=== PATIENT | male | born 1970 | race Caucasian/White ===

== ENCOUNTER 2024-10-26 18:59 | Observation (INO) | payer OTHER ==
--- NOTE | 2024-10-26 19:12 | ED ---
General Adult HPI - General Chief complaint: Seizure Stated complaint: Seizure,AMS Time Seen by Provider: 10/26/24 19:00 Source: patient, EMS, RN notes reviewed, old records reviewed Mode of arrival: EMS Limitations: altered mental status - History of Present Illness Initial comments: This is a 54-year-old male who presents to the emergency department after having an episode where he passed out possibly had a seizure. Patient was at the store was started to feel lightheaded got to the car and went to the ground and hit his head on the car on the way down. Patient was not incontinent. Patient currently has no complaints. Patient states he is pretty heavy drinker but has been drinking a lot the last 2 days but did have a couple drinks today. Patient states he might of had a seizure many years ago when he was younger. Patient denies any recent fever chills. Patient has any nausea vomiting. Patient has any diarrhea. Patient denies any other drug use. Patient denies headache patient denies neck pain patient has numbness or weakness - Related Data Allergies Allergy/AdvReac Type Severity Reaction Status Date / Time No Known Allergies Allergy Verified 10/26/24 19:07 Review of Systems ROS Statement: Those systems with pertinent positive or pertinent negative responses have been documented in the HPI. ROS Other: All systems not noted in ROS Statement are negative. Past Medical History Past Medical History: Hypertension History of Any Multi-Drug Resistant Organisms: None Reported Past Surgical History: No Surgical Hx Reported Past Psychological History: No Psychological Hx Reported Smoking Status: Current every day smoker Past Alcohol Use History: Abuse, Daily, Heavy Past Drug Use History: Cocaine, Marijuana General Exam - General Exam Comments Initial Comments: GENERAL: Patient is well-developed and well-nourished. Patient is nontoxic and well-hyd rated and is in mild distress. ENT: Neck is soft and supple. No significant lymphadenopathy is noted. Oropharynx is clear. Moist mucous membranes. Neck has full range of motion without eliciting any pain. Patient has a small hematoma just lateral to the right occipital region. EYES: The sclera were anicteric and conjunctiva were pink and moist. Extraocular movements were intact and pupils were equal round and reactive to light. Eyelids were unremarkable. PULMONARY: Unlabored respirations. Good breath sounds bilaterally. No audible rales rhonchi or wheezing was noted. CARDIOVASCULAR: Patient has a 3 out of 6 systolic murmur ABDOMEN: Soft and nontender with normal bowel sounds. SKIN: Skin is clear with no lesions or rashes and otherwise unremarkable. NEUROLOGIC: Patient is alert and oriented x3. Cranial nerves II through XII are grossly intact. Motor and sensory are also intact. Normal speech, volume and content. Symmetrical smile. MUSCULOSKELETAL: Normal extremities with adequate strength and full range of motion. No lower extremity swelling or edema. No calf tenderness. Patient has a small abrasion to the right dorsal MCP joint LYMPHATICS: No significant lymphadenopathy is noted PSYCHIATRIC: Normal psychiatric evaluation. Limitations: altered mental status Course Vital Signs 10/26/24 10/26/24 18:59 20:15 Pulse Rate 119 H 79 Respiratory 20 26 H Rate Blood Pressure 200/111 190/103 O2 Sat by Pulse 97 94 L Oximetry Medical Decision Making - Medical Decision Making EKG is interpreted by myself but EKG shows sinus tachycardia at 108 bpm WA was 170 QRS is 96 QT interval 358 QTc is 421. Patient's EKG shows no ST segment elevation. Patient does have T wave inversions in V5 and V6. Was pt. sent in by a medical professional or institution (JOANNE Valverde, RUM PROCESSING OPERATOR, urgent care, hospital, or snf...) When possible be specific @ -No Did you speak to anyone other than the patient for history (EMS, parent, family, police, friend...)? What history was obtained from this source @ -No Did you review nursing and triage notes (agree or disagree)? Why? @ -I reviewed and agree with nursing and triage notes Were old charts reviewed (outside hosp., previous admission, EMS record, old EKG, old radiological studies, urgent care reports/EKG's, snf records)? Report findings @ -No old charts were reviewed Differential Diagnosis? @ -Differential Seizure: Recurrent seizure disorder, febrile seizure, alcohol withdrawal, stimulants, meningitis, encephalitis, intercranial hemorrhage, intracranial tumor, stroke, eclampsia, thyrotoxicosis, hypocalcemia, hyponatremia, hypernatremia, hypomagnesemia, psychogenic, this is not meant to be an all-inclusive list. EKG interpreted by me (3pts min.). @ -As above X-rays interpreted by me (1pt min.). @ -None done CT interpreted by me (1pt min.). @ -CT of the brain and C-spine showed no acute normality U/S interpreted by me (1pt. min.). @ -None done What testing was considered but not performed or refused? (CT, X-rays, U/S, labs)? Why? @ -None What meds were considered but not given or refused? Why? @ -None Did you discuss the management of the patient with other professionals (professionals i.e. , PA, RUM PROCESSING OPERATOR, lab, RT, psych nurse, sr. social media & mobile manager, machinery dismantler, teacher, vessel traffic officer, case management specialist)? Give summary @ -I spoke with sound physicians agreed to admit the patient admit the patient wrote admitting orders Was smoking cessation discussed for >3mins.? @ -No Was critical care preformed (if so, how long)? @ -No Were there social determinants of health that impacted care today? How? (Homelessness, low income, unemployed, alcoholism, drug addiction, transportation, low edu. Level, literacy, decrease access to med. care, penitentiary, rehab)? @ -No Was there de-escalation of care discussed even if they declined (Discuss DNR or withdrawal of care, Hospice)? DNR status @ -No What co-morbidities impacted this encounter? (DM, HTN, Smoking, COPD, CAD, Canc er, CVA, ARF, Chemo, Hep., AIDS, mental health diagnosis, sleep apnea, morbid obesity)? @ -None Was patient admitted / discharged? Hospital course, mention meds given and route, prescriptions, significant lab abnormalities, going to OR and other pertinent info. @ -Patient states and his also agrees that he drinks heavily daily today he did not drink much and only had 2 iced teas that were alcoholic beverages. Patient states he started feeling lightheaded in the store and when he got outside states he passed out shook and then was unresponsive for about a minute when he finally came around he did not recognize anybody or understood anything there was same Undiagnosed new problem with uncertain prognosis? @ -No Drug Therapy requiring intensive monitoring for toxicity (Heparin, Nitro, Insulin, Cardizem)? @ -No Were any procedures done? @ -No Diagnosis/symptom? @ -Alcohol withdrawal seizure Acute, or Chronic, or Acute on Chronic? @ -Acute Uncomplicated (without systemic symptoms) or Complicated (systemic symptoms)? @ -Complicated Side effects of treatment? @ -No Exacerbation, Progression, or Severe Exacerbation? @ -No Poses a threat to life or bodily function? How? (Chest pain, USA, ID, pneumonia, PE, COPD, DKA, ARF, appy, cholecystitis, CVA, Diverticulitis, Homicidal, Tami cidal, threat to staff... and all critical care pts) @ -Yes this can lead to further seizures and - Lab Data Result diagrams: 10/26/24 19:08 10/26/24 19:08 Lab Results 10/26/24 10/26/24 10/26/24 Range/Units 19:08 19:08 19:08 WBC 7.7 (3.8-10.6) k/uL RBC 4.53 (4.30-5.90) m/uL Hgb 14.9 (13.0-17.5) gm/dL Hct 45.7 (39.0-53.0) % MCV 100.7 H (80.0-100.0) fL MCH 32.9 (25.0-35.0) pg MCHC 32.7 (31.0-37.0) g/dL RDW 12.5 (11.5-15.5) % Plt Count 223 (150-450) k/uL MPV 8.0 Neutrophils % 44 % Lymphocytes % 43 % Monocytes % 7 % Eosinophils % 2 % Basophils % 1 % Neutrophils # 3.4 (1.3-7.7) k/uL Lymphocytes # 3.3 (1.0-4.8) k/uL Monocytes # 0.5 (0-1.0) k/uL Eosinophils # 0.1 (0-0.7) k/uL Basophils # 0.1 (0-0.2) k/uL PT 11.4 (10.0-12.5) sec INR 1.0 (<1.2) APTT 22.1 (22.0-30.0) sec Sodium 136 L (137-145) mmol/L Potassium 3.4 L (3.5-5.1) mmol/L Chloride 100 (98-107) mmol/L Carbon Dioxide 14 L (22-30) mmol/L Anion Gap 22 mmol/L BUN 7 L (9-20) mg/dL Creatinine 0.87 (0.66-1.25) mg/dL Est GFR (CKD-EPI)AfAm >90 (>60 ml/min/1.73 sqM) Est GFR (CKD-EPI)NonAf >90 (>60 ml/min/1.73 sqM) Glucose 113 H (74-99) mg/dL Plasma Lactic Acid Deyvi (0.7-2.0) mmol/L Calcium 9.4 (8.4-10.2) mg/dL Magnesium 2.2 (1.6-2.3) mg/dL Total Bilirubin 1.0 (0.2-1.3) mg/dL AST 181 H (17-59) U/L ALT 241 H (4-49) U/L Alkaline Phosphatase 82 (38-126) U/L Troponin I (0.000-0.034) ng/mL Total Protein 8.0 (6.3-8.2) g/dL Albumin 4.9 (3.5-5.0) g/dL Serum Alcohol <10 mg/dL 10/26/24 10/26/24 Range/Units 19:08 19:08 WBC (3.8-10.6) k/uL RBC (4.30-5.90) m/uL Hgb (13.0-17.5) gm/dL Hct (39.0-53.0) % MCV (80.0-100.0) fL MCH (25.0-35.0) pg MCHC (31.0-37.0) g/dL RDW (11.5-15.5) % Plt Count (150-450) k/uL MPV Neutrophils % % Lymphocytes % % Monocytes % % Eosinophils % % Basophils % % Neutrophils # (1.3-7.7) k/uL Lymphocytes # (1.0-4.8) k/uL Monocytes # (0-1.0) k/uL Eosinophils # (0-0.7) k/uL Basophils # (0-0.2) k/uL PT (10.0-12.5) sec INR (<1.2) APTT (22.0-30.0) sec Sodium (137-145) mmol/L Potassium (3.5-5.1) mmol/L Chloride (98-107) mmol/L Carbon Dioxide (22-30) mmol/L Anion Gap mmol/L BUN (9-20) mg/dL Creatinine (0.66-1.25) mg/dL Est GFR (CKD-EPI)AfAm (>60 ml/min/1.73 sqM) Est GFR (CKD-EPI)NonAf (>60 ml/min/1.73 sqM) Glucose (74-99) mg/dL Plasma Lactic Acid Deyvi 11.8 H* (0.7-2.0) mmol/L Calcium (8.4-10.2) mg/dL Magnesium (1.6-2.3) mg/dL Total Bilirubin (0.2-1.3) mg/dL AST (17-59) U/L ALT (4-49) U/L Alkaline Phosphatase (38-126) U/L Troponin I 0.018 (0.000-0.034) ng/mL Total Protein (6.3-8.2) g/dL Albumin (3.5-5.0) g/dL Serum Alcohol mg/dL Disposition Clinical Impression: Alcohol withdrawal seizure Disposition: ADMITTED IP TO THIS HOSP Referrals: None,Stated [Primary Care Provider] - 1-2 days Time of Disposition: 20:48
[2024-10-26 19:27] LABS: AST 181 U/L (17-59); African American GFR (CKD) >90 (>60 ml/min/1.73 sqM); Albumin 4.9 g/dL (3.5-5.0); Alcohol <10 mg/dL; Alkaline Phosphatase 82 U/L (38-126); Anion Gap 22 mmol/L; Blood Urea Nitrogen 7 mg/dL (9-20); Calcium 9.4 mg/dL (8.4-10.2); Carbon Dioxide 14 mmol/L (22-30); Chloride 100 mmol/L (98-107); Glucose 113 mg/dL (74-99); Magnesium 2.2 mg/dL (1.6-2.3); Non-African American GFR(CKD) >90 (>60 ml/min/1.73 sqM); Potassium 3.4 mmol/L (3.5-5.1); Sodium 136 mmol/L (137-145)
[2024-10-26 19:28] LABS: Basophils # (A) 0.1 k/uL (0-0.2); Basophils % (A) 1 %; Eosinophils # (A) 0.1 k/uL (0-0.7); Eosinophils % (A) 2 %; HCT 45.7 % (39.0-53.0); HGB 14.9 gm/dL (13.0-17.5); Lymphocytes # (A) 3.3 k/uL (1.0-4.8); Lymphocytes % (A) 43 %; MCH 32.9 pg (25.0-35.0); MCHC 32.7 g/dL (31.0-37.0); MCV 100.7 fL (80.0-100.0); Monocytes # (A) 0.5 k/uL (0-1.0); Monocytes % (A) 7 %; Neutrophils # (A) 3.4 k/uL (1.3-7.7); Neutrophils % (A) 44 %; Platelet Count 223 k/uL (150-450); RBC 4.53 m/uL (4.30-5.90); RDW 12.5 % (11.5-15.5); WBC 7.7 k/uL (3.8-10.6)
[2024-10-26 19:42] LABS: ALT 241 U/L (4-49)
--- NOTE | 2024-10-26 19:45 | CT ---
EXAMINATION TYPE: CT brain cspine wo con DATE OF EXAM: 10/26/2024 7:34 PM COMPARISON: None. CLINICAL INDICATION: Male, 54 years old with history of Trauma; seizure, pain TECHNIQUE: Brain: Multiple axial CT images of the brain were obtained without IV contrast. Cspine: Axial CT images from the skull base to the inferior aspect of T2 we obtained without intraven ous contrast. Coronal and sagittal reformatted images were also reviewed. . CT DLP: 1408.6 mGycm, Automated exposure control for dose reduction was used. FINDINGS: Brain: Extra-axial spaces: No abnormal extra-axial fluid collections. Ventricular system: Within normal limits Cerebral parenchyma: No acute intraparenchymal hemorrhage or mass effect. The garsia-white junction is well differentiated. Cerebellum: Unremarkable. Mass effect: No evidence of midline shift. Intracranial vasculature: Atherosclerotic calcifications of the intracranial vessels. Soft tissues: Normal. Calvarium/osseous structures: No depressed skull fracture. Paranasal sinuses and mastoid air cells: Mild scattered mucosal thickening and or secretions. Visualized orbits: Orbital contents are intact. Cervical spine: Fracture: None. Osseous structures: Unremarkable Vertebral alignment: Within normal limits. Spinal canal/Neural Foramina: Disc osteophyte complexes at C5-C6 and C6-C7 with at least moderate spi nal canal stenosis. No evidence for significant neural foraminal stenosis. Neck soft tissues: Prevertebral soft tissues are within normal limits. Other: The airway is patent. The lung apices are clear. IMPRESSION: 1. No acute intracranial process. 2. No evidence of cervical spine fracture. 3. Posterior disc osteophyte complexes with at least moderate spinal canal facet C5-C6 and C6-C7. Fu rther evaluation with MRI recommended.. [facility], , 10/26/2024 7:43 PM
[2024-10-26] MEDS: SODIUM CHLORIDE 0.9% 1,000 ML IV SCH ×2 (19:50→21:18)
--- NOTE | 2024-10-26 20:00 | XR ---
EXAMINATION TYPE: XR chest 1V portable DATE OF EXAM: 10/26/2024 7:39 PM COMPARISON: None CLINICAL INDICATION: Male, 54 years old with history of Short of breath; [facility] TECHNIQUE: XR chest 1V portable Frontal view of the chest. FINDINGS: Lungs/Pleura: There is no evidence of pleural effusion, focal consolidation, or pneumothorax. Pulmonary vascularity: Unremarkable. Heart/mediastinum: Cardiomediastinal silhouette is unremarkable. Musculoskeletal: No acute osseous pathology. IMPRESSION: No acute cardiopulmonary disease/process. [facility], , 10/26/2024 7:58 PM
[2024-10-26 20:23] LABS: Partial Thromboplastin Time 22.1 sec (22.0-30.0); Prothrombin Time 11.4 sec (10.0-12.5)
[2024-10-26] MEDS: hydrALAZINE HCL 20 MG/ML 1 ML VIAL IVP STA (20:47)
[2024-10-26] MEDS ORDERED: LORazepam 1 MG TAB PO PRN (21:05)
[2024-10-26] MEDS ORDERED: LORazepam 2 MG/ML INJ IV PRN ×2 (21:05)
[2024-10-26] MEDS: THIAMINE 100 MG/ML 2 ML VIAL IM STA (21:20)
[2024-10-26] MEDS: ACETAMINOPHEN TAB 500 MG TAB PO STA (21:20)
[2024-10-26] MEDS: LORazepam 0.5 MG TAB PO PRN (21:35)
--- NOTE | 2024-10-26 22:45 | P.HPIM ---
History of Present Illness H&P Date: 10/26/24 Patient is a 54-year-old male with a history of alcohol dependence presenting with seizures. He claims that he has been drinking alcohol for over 30 years. He did have alcohol withdrawal seizures about 25 to 30 years ago. His most recent drink was this morning. He normally drinks anywhere from 2 to 12 twelve ounce beers per day. He does not see any primary care doctor, and is not taking any medications. He was with his girlfriend at a grocery store, and started feeling a little lightheaded, leaned over on on the shopping cart. Girlfriend tried to help him get into the car when he had episode of tonic-clonic seizure which lasted about 1 minute. He did bite his tongue, but did not lose any bowel or bladder control. He claims that he noted some bruising on the right side of his body. Currently smokes 1 pack/day, denies any illicit drug use. He denies any fevers, chills, chest pain, shortness of breath, abdominal pain, nausea, vomiting, urinary or bowel complaints. In the ED, temperature was 98.7, pulse was 119, respiratory rate 20, blood pressure 200/111, saturating at 97% on room air. Head CT showed no acute process, no evidence of cervical spine fracture, posterior disc osteophyte complex with at least moderate spinal canal stenosis at facet C5-C6 and C6-C7. EKG independently interpreted, shows sinus tachycardia with T wave inversions in lateral leads. Chest x-ray independently interpreted, did not show any acute process. WBC 7.7, hemoglobin 14.9, platelet 223, sodium 136, potassium 3.4, bicarb 14, anion gap 22, creatinine 0.87, lactate 11.8, AST 181, ALT 241, troponin 0.018, serum alcohol negative. Magnesium 2.2. Patient given 2 L of normal saline in the ED, was given 10 mg of IV hydralazine initially. Being admitted for alcohol withdrawal seizure. Pertinent positives and negatives as discussed in HPI, a complete review of systems was performed and all other systems are negative. Patient seen and examined at bedside. Vital signs reviewed General: nontoxic, no distress, appears at stated age Derm: warm, dry, minor right hand abrasion Head: Right occipital hematoma, normocephalic, symmetric Eyes: EOMI, no lid lag, anicteric sclera, pupils equal round reactive to light ENT: Nose and ears atraumatic Neck: No thyromegaly, supple Mouth: no lip lesion, mucus membranes moist Cardiovascular: S1S2 reg, no murmur, no edema Lungs: clear to auscultation bilateral, no rhonchi, no rales, no wheeze, no accessory muscle use Abdominal: soft, nontender to palpation, no guarding, no appreciable organomegaly Ext: no gross muscle atrophy, muscle strength muscle strength 5 out of 5 in all 4 extremities, no contractures Neuro: CN II-XII grossly intact Psych: Alert, oriented, appropriate affect Assessment/Plan: Active: Alcohol withdrawal seizure Alcohol dependence with withdrawal Lactic acidosis High anion gap metabolic acidosis secondary to above Hypertensive urgency Sinus tachycardia -Continue normal saline at 130 cc an hour -Repeat lactate -IV Ativan per CIWA scores, monitor for sedation -Thiamine 100 mg daily, folic acid 1 mg daily -Seizure precautions, neurochecks -Hypertension and sinus tachycardia likely in the setting of alcohol withdrawal -Continue telemetry monitoring -Patient was previously on lisinopril years ago, currently not taking any medications. -Started on lisinopril 10, and amlodipine 5 mg daily Transaminitis -No right upper quadrant pain -Liver ultrasound ordered -Acute hepatitis panel pending New systolic murmur -Echocardiogram pending, ordered by ED Mild hypokalemia -20 mEq oral potassium given Nonspecific T wave changes on EKG -No active chest pain -Continue to monitor on telemetry The patient is admitted with an anticipated less than 2 midnight stay as observation status for evaluation of alcohol withdrawal seizures. Surrogate decision-maker: Significant other CODE STATUS: Full code DVT prophylaxis: Subcu Lovenox Anticipated discharge date: Pending clinical course Anticipated discharge place: Pending clinical course A total of 68 minutes was spent on the care of this complex patient more than 50% of the time was spent in counseling and care coordination. Than 50% of the time was spent in counseling and care coordination. Past Medical History Past Medical History: Hypertension History of Any Multi-Drug Resistant Organisms: None Reported Past Surgical History: No Surgical Hx Reported Past Psychological History: No Psychological Hx Reported Smoking Status: Current every day smoker Past Alcohol Use History: Abuse, Daily, Heavy Past Drug Use History: Cocaine, Marijuana Medications and Allergies Allergies Allergy/AdvReac Type Severity Reaction Status Date / Time No Known Allergies Allergy Verified 10/26/24 19:07 Physical Exam Vitals: Vital Signs Temp Pulse Resp BP Pulse Ox 10/26/24 21:37 98.7 F 10/26/24 20:15 79 26 H 190/103 94 L 10/26/24 19:45 86 26 H 196/101 98 10/26/24 18:59 119 H 20 200/111 97 Intake and Output 10/26/24 10/26/24 10/26/24 06:59 14:59 22:59 Other: Weight 88.451 kg Results CBC & Chem 7: 10/26/24 19:08 10/26/24 19:08 Labs: Abnormal Lab Results - Last 24 Hours (Table) 10/26/24 10/26/24 10/26/24 Range/Units 19:08 19:08 19:08 MCV 100.7 H (80.0-100.0) fL Sodium 136 L (137-145) mmol/L Potassium 3.4 L (3.5-5.1) mmol/L Carbon Dioxide 14 L (22-30) mmol/L BUN 7 L (9-20) mg/dL Glucose 113 H (74-99) mg/dL Plasma Lactic Acid Deyvi 11.8 H* (0.7-2.0) mmol/L AST 181 H (17-59) U/L ALT 241 H (4-49) U/L
[2024-10-26] MEDS: LORazepam 2 MG/ML INJ IV STA (23:54)
[2024-10-26] MEDS: amLODIPine 5 MG TAB PO SCH (23:54)
[2024-10-26] MEDS: POTASSIUM CHLORIDE ER 20 MEQ TAB.ER PO STA (23:54)
[2024-10-26] MEDS: lisinopriL 10 MG TAB PO SCH (23:54)
[2024-10-27] MEDS: LORazepam 2 MG/ML INJ IV PRN (02:58)
[2024-10-27 06:51] LABS: Basophils % (A) 1 %; Eosinophils # (A) 0.2 k/uL (0-0.7); Eosinophils % (A) 3 %; HCT 41.7 % (39.0-53.0); HGB 14.1 gm/dL (13.0-17.5); Lymphocytes # (A) 1.4 k/uL (1.0-4.8); Lymphocytes % (A) 28 %; MCH 33.4 pg (25.0-35.0); MCHC 33.7 g/dL (31.0-37.0); MCV 99.1 fL (80.0-100.0); Mean Platelet Volume 8.3; Monocytes # (A) 0.4 k/uL (0-1.0); Monocytes % (A) 7 %; Neutrophils % (A) 59 %; Platelet Count 177 k/uL (150-450); RBC 4.21 m/uL (4.30-5.90); RDW 12.4 % (11.5-15.5); WBC 5.1 k/uL (3.8-10.6)
[2024-10-27 07:16] LABS: ALT 202 U/L (4-49); AST 145 U/L (17-59); African American GFR (CKD) >90 (>60 ml/min/1.73 sqM); Albumin 3.9 g/dL (3.5-5.0); Albumin/Globulin Ratio 1.3; Alkaline Phosphatase 74 U/L (38-126); Anion Gap 6 mmol/L; Blood Urea Nitrogen 5 mg/dL (9-20); Calcium 8.7 mg/dL (8.4-10.2); Carbon Dioxide 23 mmol/L (22-30); Chloride 105 mmol/L (98-107); Globulin 2.9 g/dL; Glucose 93 mg/dL (74-99); Magnesium 2.1 mg/dL (1.6-2.3); Non-African American GFR(CKD) >90 (>60 ml/min/1.73 sqM); Potassium 3.8 mmol/L (3.5-5.1); Sodium 134 mmol/L (137-145); Total Bilirubin 1.4 mg/dL (0.2-1.3); Total Protein 6.8 g/dL (6.3-8.2)
[2024-10-27] MEDS: FOLIC ACID 1 MG TAB PO SCH (08:37)
[2024-10-27] MEDS: MULTIVITAMINS, THERA 1 EACH TAB PO SCH (08:37)
[2024-10-27] MEDS: THIAMINE 100 MG TAB PO SCH (08:37)
[2024-10-27] MEDS: ENOXAPARIN 40 MG/0.4 ML SYRINGE SQ SCH (08:38)
--- NOTE | 2024-10-27 09:05 | US ---
EXAMINATION TYPE: US liver DATE OF EXAM: 10/27/2024 COMPARISON: NONE CLINICAL INDICATION: Male, 54 years old with history of transaminitis; elevated liver labs, no sympto ms TECHNIQUE: Grayscale and color Doppler imaging of the right upper quadrant was performed. FINDINGS: EXAM MEASUREMENTS: Liver Length: 17.2 cm Gallbladder Wall: 0.2 cm CBD: 0.4 cm Right Kidney: 11.3 x 5.9 x 5.5 cm Pancreas: wnl Liver: difficult to penetrate Gallbladder: wnl Evidence for sonographic Mendoza's sign: no CBD: wnl Right Kidney: wnl Liver is upper limits of normal in size and heterogeneously hyperechoic in appearance. This limits ev aluation for focal masses. No ascites. No biliary dilatation. IMPRESSION: Heterogeneous hyperechoic appearance of liver consistent with diffuse fatty infiltration and/or under lying hepatocellular disease. [facility], , 10/27/2024 9:03 AM
[2024-10-27] MEDS ORDERED: LORazepam 1 MG/0.5 ML VIAL IV PRN ×3 (09:10→09:11)
[2024-10-27] MEDS ORDERED: LORazepam 1 MG TAB PO PRN (09:52)
[2024-10-27] MEDS ORDERED: LORazepam 0.5 MG TAB PO PRN (09:52)
[2024-10-27 10:05] LABS: Hepatitis A Antibody IgM Nonreactive (Nonreactive); Hepatitis B Core IgM Nonreactive (Nonreactive); Hepatitis B Surface Antigen Nonreactive (Nonreactive); Hepatitis C IgG Antibody Nonreactive (Nonreactive)
[2024-10-27] MEDS: LORazepam 1 MG/0.5 ML VIAL IV STA (12:21)
--- NOTE | 2024-10-27 16:38 | P.PN ---
Subjective Progress Note Date: 10/27/24 Hospital course: Patient is a 54-year-old male with a past medical history of hypertension, nicotine dependence and alcohol abuse. He presented to the emergency department on 10/26/2024 with reports of witnessed seizure activity. Patient reports a history of withdrawal seizures about 25 years ago. Patient also reports history of hypertension but no longer on medication as he does not follow with a PCP. Upon arrival to our facility, patient underwent evaluation in the emergency department. Vital signs upon arrival show blood pressure of 200/111, heart rate 119, respiratory rate 26, and SpO2 of 97% on room air with temp of 98.7 F. EKG showing sinus tachycardia at 108 bpm with left ventricular hypertrophy and T wave inversion in lateral leads I, aVL, V5 and V6. Chest x-ray negative for acute cardiopulmonary process. CT head and cervical spine completed CT head negative for acute intracranial process and CT cervical spine showing no evidence of cervical spine fracture revealing posterior disc osteophyte complexes with at least moderate spinal canal facet C5-C7. Labs completed and reviewed. CBC showing macrocytosis with MCV of 100.7 otherwise normal findings. Coagulation profile normal findings. BMP revealed hyponatremia with sodium of 136, potassium of 3.4, bicarb of 14, and elevated anion gap of 22. Blood glucose was 113. Lactic acid was 11.8. Magnesium 2.2. And liver profile showing elevated AST of 181 and ALT of 241. Troponin was 0.018. Serum alcohol level was less than 10. Patient admitted under our services for alcohol withdrawal with witnessed alcohol withdrawal seizure. Hepatitis panel obtained showing nonreactive. Physical exam: Vital signs reviewed and stable. General: Nontoxic, no distress and appears stated age. Derm: Skin warm and dry, normal coloration for ethnicity. Head: Atraumatic, normocephalic and symmetric. Bruising right occipital region and right eyelid and periorbital region. Eyes: EOM's intact, no lid lag, and anicteric sclera Mouth: no lip lesions, mucus membranes moist Cardiovascular: regular rate and rhythm with normal S1S2, systolic murmur, positive posterior tibial pulses bilaterally, and cap refill < 2 seconds. Lungs: Respirations even, regular, and unlabored on room air. Lungs CTA bilaterally, no rhonchi, no rales, no wheezing, and no accessory muscle usage. Abdominal: soft, nontender to palpation, no guarding, no appreciable organomegaly Ext: ROM intact. No gross muscle atrophy, no edema, no contractures Neuro: Speech clear, face symmetrical and CN II-XII grossly intact with no noted focal neuro deficits Psych: Alert and oriented to person, place, time, and situation. Appropriate and pleasant affect. Assessment and Plan of Care: Alcohol withdraw in active alcohol with complications of withdrawal seizure Lactic acidosis, resolved with IV fluid hydration High anion gap metabolic acidosis, secondary to above Transaminitis secondary to daily alcohol abuse Macrocytosis -Continue monitoring of CIWA scores and patient to be medicated with Ativan 0.5 mg every 4 hours as needed for CIWA score of 4-5, Ativan 1 mg every 4 hours for CIWA score of 6-7, Ativan 2 mg every 3 hours CIWA score of 8-9, and Ativan 2 mg every 2 hours forr CIWA score of 10 or greater. -Thiamine 100 mg daily, and Multivitamin daily, and Folate 1 mg daily -Seizure, fall, aspiration, and elopement precautions in place. -Continued close monitoring of electrolytes and replace as needed. -Telemetry monitoring. Hypertensive urgency Abnormal EKG, moderate left ventricular hypertrophy and T wave inversion in lateral leads -Patient denies having any chest pain, palpitations, shortness of breath, or any other cardiac complaints at this time. -Continue lisinopril 10 mg daily and started on amlodipine 5 mg daily. -Patient to remain on continuous telemetry monitoring. -Echocardiogram to be completed. Hypokalemia, resolved Data and imaging reviewed: -EKG showing sinus tachycardia at 108 bpm with left ventricular hypertrophy and T wave inversion in lateral leads I, aVL, V5 and V6. -Morning labs reviewed. CBC unremarkable. BMP showing mild hyponatremia with sodium of 134 and resolution of high anion gap metabolic acidosis. Liver profile showing continued transaminitis with total bili of 1.4, AST of 145, and alkaline phosphatase of 202. Hepatitis serology nonreactive. CODE STATUS: Full code DVT prophylaxis: Lovenox Anticipated discharge date: Pending completion of echocardiogram Anticipated discharge place: Home Patient was seen independently by Nurse Pracitioner. This document was prepared using [employer] dictation software. Please allow for errors in gum cook, while rare they do occur. Hong Lal NP rendered care for this patient independently, reviewed the findings and plan as documented in the note above and agree with plan. I did not physically speak with or examine the patient on this date. Objective - Vital Signs Vital signs: Vital Signs Temp 98.7 F 10/26/24 21:37 Pulse 68 10/27/24 06:34 Resp 18 10/27/24 06:34 BP 163/99 10/27/24 06:34 Pulse Ox 97 10/27/24 06:34 FiO2 Intake & Output 10/26/24 10/27/24 10/27/24 18:59 06:59 18:59 Weight 88.451 kg 88.451 kg - Labs CBC & Chem 7: 10/27/24 06:34 10/27/24 06:34 Labs: Abnormal Lab Results - Last 24 Hours (Table) 10/26/24 10/26/24 10/26/24 Range/Units 19:08 19:08 19:08 RBC (4.30-5.90) m/uL MCV 100.7 H (80.0-100.0) fL Sodium 136 L (137-145) mmol/L Potassium 3.4 L (3.5-5.1) mmol/L Carbon Dioxide 14 L (22-30) mmol/L BUN 7 L (9-20) mg/dL Glucose 113 H (74-99) mg/dL Plasma Lactic Acid Deyvi 11.8 H* (0.7-2.0) mmol/L Total Bilirubin (0.2-1.3) mg/dL AST 181 H (17-59) U/L ALT 241 H (4-49) U/L 10/27/24 10/27/24 Range/Units 06:34 06:34 RBC 4.21 L (4.30-5.90) m/uL MCV (80.0-100.0) fL Sodium 134 L (137-145) mmol/L Potassium (3.5-5.1) mmol/L Carbon Dioxide (22-30) mmol/L BUN 5 L (9-20) mg/dL Glucose (74-99) mg/dL Plasma Lactic Acid Deyvi (0.7-2.0) mmol/L Total Bilirubin 1.4 H (0.2-1.3) mg/dL AST 145 H (17-59) U/L ALT 202 H (4-49) U/L
[2024-10-27] MEDS: amLODIPine 5 MG TAB PO SCH (21:14)
[2024-10-28 15:17] VITALS: BP 139/79; PULSE 73; RESP 17; TEMP 98.8
--- NOTE | 2024-10-28 16:44 | P.PN ---
Subjective Progress Note Date: 10/28/24 Hospital course: Patient is a 54-year-old male with a past medical history of hypertension, nicotine dependence and alcohol abuse. He presented to the emergency department on 10/26/2024 with reports of witnessed seizure activity. Patient reports a history of withdrawal seizures about 25 years ago. Patient also reports history of hypertension but no longer on medication as he does not follow with a PCP. Upon arrival to our facility, patient underwent evaluation in the emergency department. Vital signs upon arrival show blood pressure of 200/111, heart rate 119, respiratory rate 26, and SpO2 of 97% on room air with temp of 98.7 F. EKG showing sinus tachycardia at 108 bpm with left ventricular hypertrophy and T wave inversion in lateral leads I, aVL, V5 and V6. Chest x-ray negative for acute cardiopulmonary process. CT head and cervical spine completed CT head negative for acute intracranial process and CT cervical spine showing no evidence of cervical spine fracture revealing posterior disc osteophyte complexes with at least moderate spinal canal facet C5-C7. Labs completed and reviewed. CBC showing macrocytosis with MCV of 100.7 otherwise normal findings. Coagulation profile normal findings. BMP revealed hyponatremia with sodium of 136, potassium of 3.4, bicarb of 14, and elevated anion gap of 22. Blood glucose was 113. Lactic acid was 11.8. Magnesium 2.2. And liver profile showing elevated AST of 181 and ALT of 241. Troponin was 0.018. Serum alcohol level was less than 10. Patient admitted under our services for alcohol withdrawal with witnessed alcohol withdrawal seizure. Hepatitis panel obtained showing nonreactive. Physical exam: Patient seen and fully evaluated at bedside this morning he currently denies having any questions, needs, or complaints. Echocardiogram has been completed and currently pending results. Patient and patient's family at bedside were updated the plan for discharge once echocardiogram results are available or additional orders to be placed at that time. Vital signs reviewed and stable. General: Nontoxic, no distress and appears stated age. Derm: Skin warm and dry, normal coloration for ethnicity. Head: Atraumatic, normocephalic and symmetric. Bruising right occipital region and right eyelid and periorbital region. Eyes: EOM's intact, no lid lag, and anicteric sclera Mouth: no lip lesions, mucus membranes moist Cardiovascular: regular rate and rhythm with normal S1S2, systolic murmur, posit dillon posterior tibial pulses bilaterally, and cap refill < 2 seconds. Lungs: Respirations even, regular, and unlabored on room air. Lungs CTA bilaterally, no rhonchi, no rales, no wheezing, and no accessory muscle usage. Abdominal: soft, nontender to palpation, no guarding, no appreciable organome yaa Ext: ROM intact. No gross muscle atrophy, no edema, no contractures Neuro: Speech clear, face symmetrical and CN II-XII grossly intact with no noted focal neuro deficits Psych: Alert and oriented to person, place, time, and situation. Appropriate and pleasant affect. Assessment and Plan of Care: Alcohol withdraw in active alcohol with complications of withdrawal seizure Lactic acidosis, resolved with IV fluid hydration High anion gap metabolic acidosis, secondary to above Transaminitis secondary to daily alcohol abuse Macrocytosis -Continue monitoring of CIWA scores and patient to be medicated with Ativan 0.5 mg every 4 hours as needed for CIWA score of 4-5, Ativan 1 mg every 4 hours for CIWA score of 6-7, Ativan 2 mg every 3 hours CIWA score of 8-9, and Ativan 2 mg every 2 hours forr CIWA score of 10 or greater. -Thiamine 100 mg daily, and Multivitamin daily, and Folate 1 mg daily -Seizure, fall, aspiration, and elopement precautions in place. -Continued close monitoring of electrolytes and replace as needed. -Telemetry monitoring. Hypertensive urgency Abnormal EKG, moderate left ventricular hypertrophy and T wave inversion in lateral leads -Patient denies having any chest pain, palpitations, shortness of breath, or any other cardiac complaints at this time. -Continue lisinopril 10 mg daily and started on amlodipine 5 mg daily. -Patient to remain on continuous telemetry monitoring. -Echocardiogram to be completed. Hypokalemia, resolved Data and imaging reviewed: Vital signs reviewed. Blood pressure 150/96, heart rate 74, respiratory rate 18, temp 99.0 F, and SpO2 of 98% on room air. -Morning labs reviewed. CBC unremarkable. BMP showing mild hyponatremia with sodium of 134 and resolution of high anion gap metabolic acidosis. Liver profile showing continued transaminitis with total bili of 1.4, AST of 145, and alkaline phosphatase of 202. Hepatitis serology nonreactive. CODE STATUS: Full code DVT prophylaxis: Lovenox Anticipated discharge date: Discharge delayed pending echocardiogram results Anticipated discharge place: Home Patient was seen independently by Nurse Pracitioner. This document was prepared using [employer] dictation software. Please allow for errors in movie writer, while rare they do occur. Hong Lal NP rendered care for this patient independently, reviewed the findings and plan as documented in the note above and agree with plan. I did not physically speak with or examine the patient on this date. Objective - Vital Signs Vital signs: Vital Signs Temp 99.0 F 10/28/24 07:00 Pulse 74 10/28/24 07:00 Resp 18 10/28/24 07:00 BP 150/96 10/28/24 07:00 Pulse Ox 98 10/28/24 07:00 FiO2 Intake & Output 10/27/24 10/28/24 10/28/24 18:59 06:59 18:59 Intake Total 590 Balance 590 Weight 88.451 kg Intake: Oral 590 Other: # Voids 4 3 - Labs CBC & Chem 7: 10/27/24 06:34 10/27/24 06:34
--- NOTE | 2024-10-28 17:25 | CA ---
Transthoracic Echo Report Name: Mj Dumont Age: 54 Gender: M : 1970 Exam Date: 10/28/2024 08:16 Exam Location: [facility] Ht (in): 69 Wt (lb): 195 Ordering Physician: Iker Hooker MD Attending/Referring Phys: Title Processor Julianne Serrano RDCS Procedure CPT: Indications: Murmur Cardiac Hx: Technical Quality: Good Contrast 1: Total Dose (mL): Contrast 2: Total Dose (mL): MEASUREMENTS (Male / Female) Normal Values 2D ECHO LV Diastolic Diameter PLAX 4.6 cm 4.2 - 5.9 / 3.9 - 5.3 cm LV Systolic Diameter PLAX 2.9 cm IVS Diastolic Thickness 1.3 cm 0.6 - 1.0 / 0.6 - 0.9 cm LVPW Diastolic Thickness 1.4 cm 0.6 - 1.0 / 0.6 - 0.9 cm LV Relative Wall Thickness 0.6 RV Internal Dim ED PLAX 3.4 cm LVOT Diameter 2.2 cm LA Systolic Diameter LX 4.2 cm 3.0 - 4.0 / 2.7 - 3.8 cm LV Diastolic Volume MOD BP 116.7 cm??? 67 - 155 / 56 - 104 cm??? LV Systolic Volume MOD BP 40.3 cm??? - 58 / 19 - 49 cm??? LV Ejection Fraction MOD BP 65.5 % >= 55 % LV Cardiac Index MOD BP 2551.7 cm???/min???m??? LV Diastolic Volume MOD 4C 117.3 cm??? LV Systolic Volume MOD 4C 39.4 cm??? LV Ejection Fraction MOD 4C 66.4 % LV Cardiac Index MOD 4C 2604.1 cm???/min???m??? LV Diastolic Length 4C 9.2 cm LV Systolic Length 4C 7.0 cm LV Diastolic Volume MOD 2C 115.3 cm??? LV Systolic Volume MOD 2C 40.6 cm??? LV Ejection Fraction MOD 2C 64.8 % LV Cardiac Index MOD 2C 2493.9 cm???/min???m??? LV Diastolic Length 2C 9.1 cm LV Systolic Length 2C 6.9 cm LA Volume 57.6 cm??? 18 - 58 / 22 - 52 cm??? LA Volume Index 27.5 cm???/m??? 16 - 28 cm???/m??? DOPPLER AV Peak Velocity 173.2 cm/s AV Peak Gradient 12.0 mmHg AV Mean Velocity 127.4 cm/s AV Mean Gradient 7.2 mmHg AV Velocity Time Integral 30.5 cm MV Area PHT 2.1 cm??? Mitral E Point Velocity 45.4 cm/s Mitral A Point Velocity 72.5 cm/s Mitral E to A Ratio 0.6 MV Deceleration Time 353.1 ms TR Peak Velocity 231.7 cm/s TR Peak Gradient 21.5 mmHg Right Atrial Pressure 5.0 mmHg Pulmonary Artery Systolic Pressu 26.5 mmHg Right Ventricular Systolic Press 26.5 mmHg FINDINGS Left Ventricle Left ventricular ejection fraction is estimated at 60-65%. Mildly increased septal wall thickness. Normal left ventricular systolic function with no obvious regional wall motion abnormalities. LV mid cavity obstruction with greadiant of 40 mmHg Right Ventricle Normal right ventricular size and function. Right ventricular systolic pressure within normal limits. Right Atrium Normal right atrial size. Left Atrium Mildly increased left atrial diameter. Mitral Valve Mitral valve thickened. No mitral stenosis. Trace to mild mitral regurgitation. Aortic Valve Trileaflet aortic valve. Aortic valve sclerosis. No aortic stenosis. No aortic regurgitation. Tricuspid Valve Structurally normal tricuspid valve. No tricuspid stenosis. Trace tricuspid regurgitation. Pulmonic Valve Pulmonic valve not well visualized. No pulmonic stenosis. No pulmonic regurgitation. Pericardium No pericardial effusion. Aorta Normal size aortic root and proximal ascending aorta. CONCLUSIONS Normal LV function Previewed by: Dr. Fermín Marinelli MD (Electronically Signed) Final Date: 28 October 2024 17:24
--- NOTE | 2024-10-28 17:30 | P.DS ---
Providers Date of admission: 10/26/24 21:37 Expected date of discharge: 10/28/24 Attending physician: Garrick Enamorado Primary care physician: Stated None Hospital Course: Called and notified Mr. Dumont at 6:08 PM that echocardiogram report was available and discussed results with him over the phone. Pt again encouraged to follow up with internal medicine clinic and automatic pad making machine operator. Pt states he will go to clinic and once able to straighten out insurance issues will also go to automatic pad making machine operator office. Discharge Diagnosis: Alcohol withdraw in active alcohol with complications of withdrawal seizure Lactic acidosis, resolved with IV fluid hydration High anion gap metabolic acidosis, secondary to above Transaminitis secondary to daily alcohol abuse Macrocytosis Hypertensive urgency. Patient discharged home with prescription for lisinopril 10 mg daily and amlodipine 5 mg twice daily. Abnormal EKG, moderate left ventricular hypertrophy and T wave inversion in lat eral leads. Patient denied having any chest pain or cardiac complaints. Echocardiogram revealing preserved EF of 60 to 65% with mildly increased septal wall thickness and normal left ventricular systolic function with no obvious regional wall abnormalities reported, normal right systolic function, mild mitral regurgitation and no pericardial effusion. Patient educated along with family at bedside about the importance of optimizing control of hypertension and that he will need to follow-up as additional medications/dose changes may be needed to current blood pressure regimen. Patient also encouraged to follow-up with a automatic pad making machine operator and reported he is willing to go to clinic but will have to wait to go to automatic pad making machine operator until he can straighten things out with his insurance. Hypokalemia, resolved Hospital Course: Patient is a 54-year-old male with a past medical history of hypertension, nicotine dependence and alcohol abuse. He presented to the emergency department on 10/26/2024 with reports of witnessed seizure activity. Patient reports a history of withdrawal seizures about 25 years ago. Patient also reports history of hypertension but no longer on medication as he does not follow with a PCP. Upon arrival to our facility, patient underwent evaluation in the emergency department. Vital signs upon arrival show blood pressure of 200/111, heart rate 119, respiratory rate 26, and SpO2 of 97% on room air with temp of 98.7 F. EKG showing sinus tachycardia at 108 bpm with left ventricular hypertrophy and T wave inversion in lateral leads I, aVL, V5 and V6. Chest x-ray negative for acute cardiopulmonary process. CT head and cervical spine completed CT head negative for acute intracranial process and CT cervical spine showing no evidence of cervical spine fracture revealing posterior disc osteophyte complexes with at least moderate spinal canal facet C5-C7. Labs completed and reviewed. CBC showing macrocytosis with MCV of 100.7 otherwise normal findings. Coagulation profile normal findings. BMP revealed hyponatremia with sodium of 136, potassium of 3.4, bicarb of 14, and elevated anion gap of 22. Blood glucose was 113. Lactic acid was 11.8. Magnesium 2.2. And liver profile showing elevated AST of 181 and ALT of 241. Troponin was 0.018. Serum alcohol level was less than 10. Patient admitted under our services for alcohol withdrawal with witnessed alcohol withdrawal seizure. Hepatitis panel obtained showing nonreactive. Physical exam: Vital signs reviewed and stable. General: Nontoxic, no distress and appears stated age. Derm: Skin warm and dry, normal coloration for ethnicity. Head: Atraumatic, normocephalic and symmetric. Bruising right occipital region and right eyelid and periorbital region. Eyes: EOM's intact, no lid lag, and anicteric sclera Mouth: no lip lesions, mucus membranes moist Cardiovascular: regular rate and rhythm with normal S1S2, systolic murmur, positive posterior tibial pulses bilaterally, and cap refill < 2 seconds. Lungs: Respirations even, regular, and unlabored on room air. Lungs CTA bilaterally, no rhonchi, no rales, no wheezing, and no accessory muscle usage. Abdominal: soft, nontender to palpation, no guarding, no appreciable organomegaly Ext: ROM intact. No gross muscle atrophy, no edema, no contractures Neuro: Speech clear, face symmetrical and CN II-XII grossly intact with no noted focal neuro deficits Psych: Alert and oriented to person, place, time, and situation. Appropriate and pleasant affect. A total of 33 minutes of time were spent preparing this complex discharge summary. Pt was discharged on 10/28/2024 at 5:27 PM. Patient was seen independently by Nurse Practitioner. This document was prepared using [employer] dictation software. Please allow for errors in machine set up operator while rare they do occur. Hong Lal NP rendered care for this patient independently, reviewed the findings and plan as documented in the note above. I did not physically speak with or examine the patient on this date. Patient Condition at Discharge: Stable Plan - Discharge Summary Discharge Rx Participant: Yes New Discharge Prescriptions: New amLODIPine [Norvasc] 5 mg PO BID 30 Days #60 tab lisinopriL [Zestril] 10 mg PO DAILY 30 Days #30 tab Discharge Medication List amLODIPine [Norvasc] 5 mg PO BID 30 Days #60 tab 10/28/24 [Rx] lisinopriL [Zestril] 10 mg PO DAILY 30 Days #30 tab 10/28/24 [Rx] Follow up Appointment(s)/Referral(s): [facility] [NON-STAFF] - 1 Week Patient Instructions/Handouts: Nonepileptic Seizures (DC), Abuse of Alcohol (DC), Alcohol Withdrawal (DC), Hypertensive Crisis (DC) Activity/Diet/Wound Care/Special Instructions: Activity: As tolerated. Take breaks as needed. Diet: Heart healthy and carb consistent diet. Special Instructions: Take all of your medications as directed and remember to keep all of your doctor's appointments and follow-up as needed. Strongly recommending avoiding any and all alcohol use as we discussed. Monitor your blood pressures at home as dosing of these medications and/or additional medications may need to be added to this regimen to optimize control. Unfortunately at the time of discharge her echocardiogram results are not available. Per your request, you are being discharged home without these results and I will call and notify you of these results tomorrow once they are available and if anything is changed to your discharge plan based upon these res ults you will be notified at that time. Please return to the emergency department or call 911 immediately if you develop any chest pain, pressure, palpitations, or any other complaints. Again as dis cussed please avoid any and all alcohol use to prevent repeat episodes of withdrawal and/or withdrawal seizures. [place] state law states no driving until seizure free for 6 months. It is also recommended to avoid climbing ladders, operating dangerous or heavy machinery or unsupervised swimming until seizure free for 6 months. Thank you for allowing us to participate in your care, it was truly a pleasure having you for our patient!!! Discharge/Stand Alone Forms: AA [facility], Community Resources, Outpatient Counseling, Work/School Release, Inp Substance Abuse Facilities Discharge Disposition: HOME SELF-CARE
== END 2024-10-28 17:53 | disposition home or self-care (01) ==
LOC: EC 18:59 → 6NMEDSUR 21:37
PROVIDERS: ADMIT Student in an Organized Health Care Education/Training Program; ATTEND Student in an Organized Health Care Education/Training Program
DX: F10.239 Alcohol dependence with withdrawal, unspecified (principal); I16.0 Hypertensive urgency; I11.9 Hypertensive heart disease without heart failure; E87.20 Acidosis, unspecified; E87.6 Hypokalemia; E87.1 Hypo-osmolality and hyponatremia; R74.01 Elevation of levels of liver transaminase levels; Y90.0 Blood alcohol level of less than 20 mg/100 ml; D75.89 Other specified diseases of blood and blood-forming organs; R94.31 Abnormal electrocardiogram [ECG] [EKG]; R01.1 Cardiac murmur, unspecified; M48.02 Spinal stenosis, cervical region; M25.78 Osteophyte, vertebrae; F17.210 Nicotine dependence, cigarettes, uncomplicated; S00.03XA Contusion of scalp, initial encounter; W18.39XA Other fall on same level, initial encounter; Y92.89 Other specified places as the place of occurrence of the external cause
CPT/HCPCS: 96376 ×2; 96361 ×3; 96372 ×2; 96374; 96375; 99285; 36415; 93005; 93306; 80053 ×2; 80074; 83605; 83735 ×2; 84484; 85025 ×2; 85610; 85730; 87040; 80320; 71045; 76705; 72125; 70450; G0378 ×3; J2060 ×2; J0360; J3411; J1650